=== PATIENT | male | born 1980 | race Caucasian/White ===

== ENCOUNTER 2016-11-17 15:56 | Inpatient (IN) ==
--- NOTE | 2016-11-17 16:17 | Emergency Department Note ---
Disposition Clinical Impression: Suicidal ideation Disposition: Still a Patient Condition: Good Referrals: NO,PCP [Primary Care Provider] - Forms: ED Satisfaction Letter Psych HPI - General Chief Complaint: ED Psychiatric Symptoms Stated Complaint: Anxiety / SI Time Seen by Provider: 11/17/16 15:58 Source: patient, EMS Mode of arrival: EMS Limitations: no limitations Nursing Notes Reviewed: Yes Vital Signs Reviewed: Yes - History of Present Illness HPI Narrative: 36-year-old male history of anxiety presents for evaluation of suicidal ideation. Patient states that he was driving felt weak and pulled over. He was at his doctor's urgent care office. States that he has been going through a difficult time. Reports that he feels like hurting himself. Does not want to hurt anybody else. Notes that he does not have a history of SI. Reports history of anxiety and noted some chest pain prior to coming into the emergency department. Patient does appear anxious. No shortness of breath or fevers. Patient does note that he tripped and fell and hit his head on the coffee table yesterday. Positive LOC. Denies delusions or hallucinations. Reports several life stressors with getting fired from his job as well as getting a divorce. Pt complaint: suicidal ideation, feels depressed Onset (ago): day(s) - Related Data Previous Rx's Medication Instructions Recorded Cyclobenzaprine [Flexeril] 10 mg PO HS #14 tablet 10/12/15 OxyCODONE/APAP 5/325 [Percocet 1 each PO Q8H PRN #20 tablet 10/12/15 5/325] Allergies Allergy/AdvReac Type Severity Reaction Status Date / Time No Known Allergies Allergy Verified 10/11/15 16:03 All systems ED: reviewed and negative except as stated. Constitutional: Reports: as per HPI. Denies: fever Eyes: Reports: as per HPI ENT ED: Reports: as per HPI Cardiovascular: Reports: as per HPI, chest pain Respiratory: Reports: as per HPI. Denies: cough, dyspnea Gastrointestinal: Reports: as per HPI. Denies: abdominal pain, nausea, vomiting Genitourinary: Reports: as per HPI Musculoskeletal: Reports: as per HPI, back pain Integumentary: Reports: as per HPI Neurological: Reports: as per HPI Psychiatric: Reports: as per HPI, anxiety Endocrine: Reports: as per HPI Past Medical History - Past Medical History Source: patient Medical history: Reports: other Psychiatric history: Reports: anxiety, depression - Social History Smoking Status: Current every day smoker Smokeless Tobacco Status: No Alcohol use: Reports: none Drug use: Reports: none Physical Exam - General Limitations: no limitations General appearance: alert, in no apparent distress - Head Head exam: atraumatic, normocephalic, normal inspection - Eye Eye exam: Present: normal appearance, EOMI, other (Right periorbital ecchymosis) - ENT ENT exam: normal exam, normal oropharynx, mucous membranes moist - Neck Neck exam: Present: normal inspection, full ROM - Chest Chest inspection: Present: normal inspection, symmetric chest wall rise - Respiratory Respiratory exam: Present: normal lung sounds bilaterally. Absent: respiratory distress - Cardiovascular Cardiovascular exam: Present: normal rhythm, tachycardia - Abdominal Exam Abdominal exam: Present: soft, Non-Tender - Extremities Exam Extremities exam: Present: normal inspection. Absent: pedal edema - Neurological Exam Neurological exam: Present: alert, oriented X3 - Psychiatric Psychiatric exam: Present: anxious - Skin Skin exam: Present: warm, dry, intact, normal color Course Course Narrative: Patient will get a medical clearance, CT of the head due to recent trauma to the head. No focal neurologic deficits. Patient's chest pain likely related to his stress. Patient does not have any risk factors for ACS. Heart scores low. He was given Ativan to help with anxiety. [place] slip was placed on the chart. - Reevaluation(s) Reevaluation #1: Patient's resting comfortably. No acute distress. Time: 17:16 Reevaluation #2: Patient has been medically cleared awaiting psychiatric evaluation. Time: 18:27 Vital Signs Temperature 98.4 F 11/17/16 15:58 Pulse Rate 96 11/17/16 15:58 Respiratory Rate 18 11/17/16 15:58 Blood Pressure 147/88 11/17/16 15:58 O2 Sat by Pulse Oximetry 94 L 11/17/16 15:58 Temperature 98.4 F 11/17/16 15:58 Pulse Rate 96 11/17/16 15:58 Respiratory Rate 18 11/17/16 15:58 Blood Pressure 147/88 11/17/16 15:58 O2 Sat by Pulse Oximetry 94 L 11/17/16 15:58 Oxygen Delivery Oxygen Delivery Room Air Psych - MDM Narrative Medical decision making narrative: 36-year-old male persist for evaluation after suicidal ideations. Patient has a history of anxiety. Notes he had several life stressors. Patient does have a plan with shooting himself. Patient had imaging of his head obtain because he had periorbital ecchymosis from a fall yesterday. Patient's CT of his head was unremarkable. Patient's chest x-ray as well as EKG is also unremarkable. Unlikely this is any ACS cardiac etiology. Patient has a history of anxiety. Resting comfortably. Patient was medically cleared as waiting 1A consults. Patient will be signed out by the oncoming provider. - Lab Data Result diagrams: 11/17/16 16:22 11/17/16 16:22 Lab Results 11/17/16 11/17/16 11/17/16 Range/Units 16:22 16:22 16:22 WBC 10.2 (4.3-11.1) K/mcL RBC 5.35 (4.19-5.50) M/mcL Hgb 16.6 (12.9-16.9) g/dL Hct 46.0 (37.5-50.1) % MCV 86.0 (83.0-100.0) fL MCH 31.0 (28.0-33.3) pg MCHC 36.1 H (31.6-35.5) g/dL RDW 12.5 (11.5-14.5) % Plt Count 309 (140-400) K/mcL MPV 9.6 (9.4-12.4) fL Immature Gran % 0.3 (0-4) % Seg Neutrophils % 60.5 % Lymphocytes % 30.0 % Monocytes % 8.3 % Eosinophils % 0.3 % Basophils % 0.6 % Neutrophils # 6.2 (1.6-8.9) K/mcL Lymphocytes # 3.1 (0.6-4.6) K/mcL Monocytes # 0.9 (0.0-1.3) K/mcL Eosinophils # 0.0 (0.0-0.6) K/mcL Basophils # 0.1 (0.0-0.2) K/mcL Sodium 142 (136-145) mEq/L Potassium 3.5 (3.5-4.5) mEq/L Chloride 106 (98-109) mEq/L Carbon Dioxide 23 (19-29) mEq/L BUN 8 (8-26) mg/dL Creatinine 0.89 (0.72-1.25) mg/dL Est GFR ( Amer) > 60 (> 60) Est GFR (Non-Af Amer) > 60 (> 60) BUN/Creatinine Ratio 9 (6-26) Glucose 96 (70-99) mg/dL Calculated Osmolality 292 (280-300) Calcium 9.7 (8.6-10.8) mg/dL Troponin I 0.00 (0-0.03) ng/mL TSH (0.350-4.840) mcIU/mL Urine Color (Yellow) Urine Clarity (Clear) Urine pH (5.0-8.0) pH Units Ur Specific [place] (1.010-1.025) Urine Protein (Neg-Trace) mg/dL Urine Glucose (UA) (Normal) mg/dL Urine Ketones (Negative) mg/dL Urine Blood (Negative) Urine Nitrite (Negative) Urine Bilirubin (Negative) Urine Urobilinogen (Normal) mg/dL Ur Leukocyte Esterase (Negative) Urine Microscopic RBC (0-3) per hpf Urine Microscopic WBC (0-3) per hpf Ur Squamous Epith Cells (None-Few) per lpf Urine Bacteria (None-Few) per hpf Hyaline Casts (None-Few) per lpf Salicylates < 5.0 L (15-30) mg/dL Urine Opiates Screen (Fafpvj=638) ng/mL Acetaminophen < 1.0 L (10-30) mcg/mL Ur Barbiturates Screen (Tlfepu=481) ng/mL Ur Phencyclidine Scrn (Cutoff=25) ng/mL Ur Amphetamines Screen (Xgefbc=0078) ng/mL U Benzodiazepines Scrn (Jwzrha=608) ng/mL Urine Cocaine Screen (Cutoff= 300) ng/mL U Marijuana (THC) Screen (Cutoff = 50) ng/mL Ethyl Alcohol < 10 (0-10) mg/dL 11/17/16 11/17/16 11/17/16 Range/Units 16:22 18:00 18:00 WBC (4.3-11.1) K/mcL RBC (4.19-5.50) M/mcL Hgb (12.9-16.9) g/dL Hct (37.5-50.1) % MCV (83.0-100.0) fL MCH (28.0-33.3) pg MCHC (31.6-35.5) g/dL RDW (11.5-14.5) % Plt Count (140-400) K/mcL MPV (9.4-12.4) fL Immature Gran % (0-4) % Seg Neutrophils % % Lymphocytes % % Monocytes % % Eosinophils % % Basophils % % Neutrophils # (1.6-8.9) K/mcL Lymphocytes # (0.6-4.6) K/mcL Monocytes # (0.0-1.3) K/mcL Eosinophils # (0.0-0.6) K/mcL Basophils # (0.0-0.2) K/mcL Sodium (136-145) mEq/L Potassium (3.5-4.5) mEq/L Chloride (98-109) mEq/L Carbon Dioxide (19-29) mEq/L BUN (8-26) mg/dL Creatinine (0.72-1.25) mg/dL Est GFR ( Amer) (> 60) Est GFR (Non-Af Amer) (> 60) BUN/Creatinine Ratio (6-26) Glucose (70-99) mg/dL Calculated Osmolality (280-300) Calcium (8.6-10.8) mg/dL Troponin I (0-0.03) ng/mL TSH 0.922 (0.350-4.840) mcIU/mL Urine Color Yellow (Yellow) Urine Clarity Clear (Clear) Urine pH 6.5 (5.0-8.0) pH Units Ur Specific [place] 1.010 (1.010-1.025) Urine Protein Negative (Neg-Trace) mg/dL Urine Glucose (UA) Normal (Normal) mg/dL Urine Ketones Trace H (Negative) mg/dL Urine Blood Negative (Negative) Urine Nitrite Negative (Negative) Urine Bilirubin Negative (Negative) Urine Urobilinogen Normal (Normal) mg/dL Ur Leukocyte Esterase Trace H (Negative) Urine Microscopic RBC 0-3 (0-3) per hpf Urine Microscopic WBC 3-5 H (0-3) per hpf Ur Squamous Epith Cells None Seen (None-Few) per lpf Urine Bacteria None Seen (None-Few) per hpf Hyaline Casts None Seen (None-Few) per lpf Salicylates (15-30) mg/dL Urine Opiates Screen Positive H (Zxmnsn=973) ng/mL Acetaminophen (10-30) mcg/mL Ur Barbiturates Screen Negative (Casqmw=076) ng/mL Ur Phencyclidine Scrn Negative (Cutoff=25) ng/mL Ur Amphetamines Screen Negative (Rnitep=7069) ng/mL U Benzodiazepines Scrn Negative (Fmpppn=224) ng/mL Urine Cocaine Screen Negative (Cutoff= 300) ng/mL U Marijuana (THC) Screen Positive H (Cutoff = 50) ng/mL Ethyl Alcohol (0-10) mg/dL - EKG Data EKG shows normal: sinus rhythm Rate: tachycardia Rhythm: NSR [place]/QRS: normal Interpretation: no acute changes Psychiatric Medical Clearance - Medical Clearance Checklist Does the patient have a NEW psychiatric condition?: No Any abnormalities indicating possible medical illness?: No Any history of medical issues?: No Medical History: No Social History Section defined Any abnormal vital signs prior to transfer?: No Current Vitals: Last Vital Signs Temp 98.4 F 11/17/16 15:58 Pulse 96 11/17/16 15:58 Resp 18 11/17/16 15:58 BP 147/88 11/17/16 15:58 Pulse Ox 94 L 11/17/16 15:58 Is the patient intoxicated or cognitively impaired?: No Psychiatric Lab Panel: Drug Levels and Toxicity 11/17/16 11/17/16 16:22 18:00 Urine Opiates Screen Positive H Acetaminophen < 1.0 L Ur Barbiturates Screen Negative Ur Phencyclidine Scrn Negative Ur Amphetamines Screen Negative U Benzodiazepines Scrn Negative Urine Cocaine Screen Negative U Marijuana (THC) Screen Positive H Ethyl Alcohol < 10 Any abnormalities on the physical exam?: No Any abnormal labs?: No Abnormal Labs: Abnormal lab results MCHC 36.1 g/dL (31.6-35.5) H 11/17/16 16:22 Urine Ketones Trace mg/dL (Negative) H 11/17/16 18:00 Ur Leukocyte Esterase Trace (Negative) H 11/17/16 18:00 Urine Microscopic WBC 3-5 per hpf (0-3) H 11/17/16 18:00 Salicylates < 5.0 mg/dL (15-30) L 11/17/16 16:22 Urine Opiates Screen Positive ng/mL (Ivvxxh=452) H 11/17/16 18:00 Acetaminophen < 1.0 mcg/mL (10-30) L 11/17/16 16:22 U Marijuana (THC) Screen Positive ng/mL (Cutoff = 50) H 11/17/16 18:00 Does the patient require durable medical equiptment?: No Is the patient ambulatory?: Yes Is the patient a fall risk?: No Has the patient been medically cleared?: Yes Any acute medical condition require Tx prior to transfer?: No Statement of Medical Clearance: I have evaluated the patient, reviewed diagnostic information, and certify that the patient's medical condition is sufficiently stable that transfer to the psychiatric unit does not pose a significant risk of deterioration. S.Leyla - Ayana Situation: Demographics Background: Presenting Complaint Assessment: Vital Signs, Course and respsone to treatment, Patient/Family Expectation, Pertinant Lab Results Recommendation: Barrier(s) to disposition, Recommendation based on pending studies, treatments, or consults S.B.Elzbieta Report Given to: Dr. Glo Piña Repor Time: 18:57 Attestation Statement - Attestation Attestation: I examined this patient and my medical decision-making was reviewed with the CABANA ATTENDANT/PA/Advanced Practice Nurse/Resident Physician. I agree with the documented findings, disposition and treatment plan as described except to the extent set forth below. Patient emergency department with suicidal thoughts. Patient has not felt well for a few days. Had a syncopal episode yesterday. Had a near syncopal episode today while driving and pulled over. Patient admits to increased depression secondary to life stressors. Has a plan to shoot himself. Exam shows an awake alert cooperative in no distress. Heart regular mildly tacky. Lungs clear. Plan. Neck workup for medical clearance. Psych eval.
[2016-11-17] MEDS ORDERED: *HR* LORazepam 0.5 MG TABLET PO ONE (16:22)
[2016-11-17 16:31] LABS: Basophils # 0.1 K/mcL (0.0-0.2); Basophils % 0.6 %; Eosinophils % 0.3 %; Hemoglobin 16.6 g/dL (12.9-16.9); Immature Granulocytes % 0.3 % (0-4); Lymphocytes # 3.1 K/mcL (0.6-4.6); Mean Corpuscular HGB Conc 36.1 g/dL (31.6-35.5); Mean Platelet Volume 9.6 fL (9.4-12.4); Monocytes # 0.9 K/mcL (0.0-1.3); Monocytes % 8.3 %; Neutrophils # 6.2 K/mcL (1.6-8.9); Platelet Count 309 K/mcL (140-400); Red Blood Count 5.35 M/mcL (4.19-5.50); Red Cell Distribution Width 12.5 % (11.5-14.5); Segmented Neutrophils % 60.5 %
[2016-11-17 16:52] LABS: BUN/Creatinine Ratio 9 (6-26); Blood Urea Nitrogen 8 mg/dL (8-26); Carbon Dioxide 23 mEq/L (19-29); Chloride 106 mEq/L (98-109); Potassium 3.5 mEq/L (3.5-4.5); Sodium 142 mEq/L (136-145)
[2016-11-17 16:53] LABS: Calcium 9.7 mg/dL (8.6-10.8); Ethanol < 10 mg/dL (0-10); Glucose 96 mg/dL (70-99); Osmolality,Calculated 292 (280-300); Salicylate < 5.0 mg/dL (15-30); eGFR For African Americans > 60 (> 60); eGFR For Non-African Americans > 60 (> 60)
[2016-11-17 17:40] LABS: Acetaminophen < 1.0 mcg/mL (10-30)
[2016-11-17] MEDS ORDERED: Ibuprofen 600 MG TABLET PO ONE (17:42)
[2016-11-17 18:15] LABS: Bilirubin,Urine Negative (Negative); Blood,Urine Negative (Negative); Clarity,Urine Clear (Clear); Color,Urine Yellow (Yellow); Glucose,Urine (UA) Normal (Normal); Ketones,Urine Trace mg/dL (Negative); Leukocyte Esterase,Urine Trace (Negative); Nitrite,Urine Negative (Negative); PH,Urine 6.5 pH Units (5.0-8.0); Protein,Urine Negative (Neg-Trace); Urobilinogen,Urine Normal (Normal)
[2016-11-17 18:18] LABS: Bacteria,Urine None Seen per hpf (None-Few); Hyaline Casts,Urine None Seen per lpf (None-Few); RBC,Urine 0-3 per hpf (0-3); Squamous Epithelial Cell,Urine None Seen per lpf (None-Few)
[2016-11-17 18:19] LABS: Amphetamine Screen,Urine Negative ng/mL (Cutoff=1000); Barbiturate Screen,Urine Negative ng/mL (Cutoff=200); Benzodiazepines Screen,Urine Negative ng/mL (Cutoff=200); Cannabinoid Screen,Urine Positive ng/mL (Cutoff = 50); Cocaine Screen,Urine Negative ng/mL (Cutoff= 300); Opiate Screen,Urine Positive ng/mL (Cutoff=300); Phencyclidine Screen,Urine Negative ng/mL (Cutoff=25)
--- NOTE | 2016-11-17 19:06 | Emergency Department Note ---
Disposition Clinical Impression: Suicidal ideation Disposition: Admitted As Inpatient Condition: Good Referrals: NO,PCP [Primary Care Provider] - Forms: ED Satisfaction Letter Time of Disposition: 22:37 General Adult HPI - General Chief complaint: ED Psychiatric Symptoms Stated complaint: Anxiety / SI Time Seen by Provider: 11/17/16 15:58 Source: patient, EMS Mode of arrival: EMS Limitations: no limitations - History of Present Illness Pain Scale: 5 - Related Data Previous Rx's Medication Instructions Recorded Cyclobenzaprine [Flexeril] 10 mg PO HS #14 tablet 10/12/15 OxyCODONE/APAP 5/325 [Percocet 1 each PO Q8H PRN #20 tablet 10/12/15 5/325] Allergies Allergy/AdvReac Type Severity Reaction Status Date / Time No Known Allergies Allergy Verified 10/11/15 16:03 Constitutional: Reports: as per HPI. Denies: fever Eyes: Reports: as per HPI ENT ED: Reports: as per HPI Cardiovascular: Reports: as per HPI, chest pain Respiratory: Reports: as per HPI. Denies: cough, dyspnea Gastrointestinal: Reports: as per HPI. Denies: abdominal pain, nausea, vomiting Genitourinary: Reports: as per HPI Musculoskeletal: Reports: as per HPI, back pain Integumentary: Reports: as per HPI Neurological: Reports: as per HPI Psychiatric: Reports: as per HPI, anxiety Endocrine: Reports: as per HPI Past Medical History - Past Medical History Medical history: Reports: other Psychiatric history: Reports: anxiety, depression - Social History Smoking Status: Current every day smoker Smokeless Tobacco Status: No Alcohol use: Reports: none Drug use: Reports: none Physical Exam - General Limitations: no limitations General appearance: alert, in no apparent distress Course Vital Signs Temperature 98.4 F 11/17/16 15:58 Pulse Rate 96 11/17/16 15:58 Respiratory Rate 18 11/17/16 15:58 Blood Pressure 147/88 11/17/16 15:58 O2 Sat by Pulse Oximetry 94 L 11/17/16 15:58 Temperature 98.4 F 11/17/16 15:58 Pulse Rate 96 11/17/16 15:58 Respiratory Rate 18 11/17/16 15:58 Blood Pressure 147/88 11/17/16 15:58 O2 Sat by Pulse Oximetry 94 L 11/17/16 15:58 Oxygen Delivery Oxygen Delivery Room Air Medical Decision Making - Lab Data Result diagrams: 11/17/16 16:22 11/17/16 16:22 Lab Results 11/17/16 11/17/16 11/17/16 Range/Units 16:22 16:22 16:22 WBC 10.2 (4.3-11.1) K/mcL RBC 5.35 (4.19-5.50) M/mcL Hgb 16.6 (12.9-16.9) g/dL Hct 46.0 (37.5-50.1) % MCV 86.0 (83.0-100.0) fL MCH 31.0 (28.0-33.3) pg MCHC 36.1 H (31.6-35.5) g/dL RDW 12.5 (11.5-14.5) % Plt Count 309 (140-400) K/mcL MPV 9.6 (9.4-12.4) fL Immature Gran % 0.3 (0-4) % Seg Neutrophils % 60.5 % Lymphocytes % 30.0 % Monocytes % 8.3 % Eosinophils % 0.3 % Basophils % 0.6 % Neutrophils # 6.2 (1.6-8.9) K/mcL Lymphocytes # 3.1 (0.6-4.6) K/mcL Monocytes # 0.9 (0.0-1.3) K/mcL Eosinophils # 0.0 (0.0-0.6) K/mcL Basophils # 0.1 (0.0-0.2) K/mcL Sodium 142 (136-145) mEq/L Potassium 3.5 (3.5-4.5) mEq/L Chloride 106 (98-109) mEq/L Carbon Dioxide 23 (19-29) mEq/L BUN 8 (8-26) mg/dL Creatinine 0.89 (0.72-1.25) mg/dL Est GFR ( Amer) > 60 (> 60) Est GFR (Non-Af Amer) > 60 (> 60) BUN/Creatinine Ratio 9 (6-26) Glucose 96 (70-99) mg/dL Calculated Osmolality 292 (280-300) Calcium 9.7 (8.6-10.8) mg/dL Troponin I 0.00 (0-0.03) ng/mL TSH (0.350-4.840) mcIU/mL Urine Color (Yellow) Urine Clarity (Clear) Urine pH (5.0-8.0) pH Units Ur Specific [place] (1.010-1.025) Urine Protein (Neg-Trace) mg/dL Urine Glucose (UA) (Normal) mg/dL Urine Ketones (Negative) mg/dL Urine Blood (Negative) Urine Nitrite (Negative) Urine Bilirubin (Negative) Urine Urobilinogen (Normal) mg/dL Ur Leukocyte Esterase (Negative) Urine Microscopic RBC (0-3) per hpf Urine Microscopic WBC (0-3) per hpf Ur Squamous Epith Cells (None-Few) per lpf Urine Bacteria (None-Few) per hpf Hyaline Casts (None-Few) per lpf Salicylates < 5.0 L (15-30) mg/dL Urine Opiates Screen (Utcfmc=950) ng/mL Acetaminophen < 1.0 L (10-30) mcg/mL Ur Barbiturates Screen (Fwcvna=631) ng/mL Ur Phencyclidine Scrn (Cutoff=25) ng/mL Ur Amphetamines Screen (Curvwr=4035) ng/mL U Benzodiazepines Scrn (Nnrwti=184) ng/mL Urine Cocaine Screen (Cutoff= 300) ng/mL U Marijuana (THC) Screen (Cutoff = 50) ng/mL Ethyl Alcohol < 10 (0-10) mg/dL 11/17/16 11/17/16 11/17/16 Range/Units 16:22 18:00 18:00 WBC (4.3-11.1) K/mcL RBC (4.19-5.50) M/mcL Hgb (12.9-16.9) g/dL Hct (37.5-50.1) % MCV (83.0-100.0) fL MCH (28.0-33.3) pg MCHC (31.6-35.5) g/dL RDW (11.5-14.5) % Plt Count (140-400) K/mcL MPV (9.4-12.4) fL Immature Gran % (0-4) % Seg Neutrophils % % Lymphocytes % % Monocytes % % Eosinophils % % Basophils % % Neutrophils # (1.6-8.9) K/mcL Lymphocytes # (0.6-4.6) K/mcL Monocytes # (0.0-1.3) K/mcL Eosinophils # (0.0-0.6) K/mcL Basophils # (0.0-0.2) K/mcL Sodium (136-145) mEq/L Potassium (3.5-4.5) mEq/L Chloride (98-109) mEq/L Carbon Dioxide (19-29) mEq/L BUN (8-26) mg/dL Creatinine (0.72-1.25) mg/dL Est GFR ( Amer) (> 60) Est GFR (Non-Af Amer) (> 60) BUN/Creatinine Ratio (6-26) Glucose (70-99) mg/dL Calculated Osmolality (280-300) Calcium (8.6-10.8) mg/dL Troponin I (0-0.03) ng/mL TSH 0.922 (0.350-4.840) mcIU/mL Urine Color Yellow (Yellow) Urine Clarity Clear (Clear) Urine pH 6.5 (5.0-8.0) pH Units Ur Specific [place] 1.010 (1.010-1.025) Urine Protein Negative (Neg-Trace) mg/dL Urine Glucose (UA) Normal (Normal) mg/dL Urine Ketones Trace H (Negative) mg/dL Urine Blood Negative (Negative) Urine Nitrite Negative (Negative) Urine Bilirubin Negative (Negative) Urine Urobilinogen Normal (Normal) mg/dL Ur Leukocyte Esterase Trace H (Negative) Urine Microscopic RBC 0-3 (0-3) per hpf Urine Microscopic WBC 3-5 H (0-3) per hpf Ur Squamous Epith Cells None Seen (None-Few) per lpf Urine Bacteria None Seen (None-Few) per hpf Hyaline Casts None Seen (None-Few) per lpf Salicylates (15-30) mg/dL Urine Opiates Screen Positive H (Ukiayf=009) ng/mL Acetaminophen (10-30) mcg/mL Ur Barbiturates Screen Negative (Fmpskm=330) ng/mL Ur Phencyclidine Scrn Negative (Cutoff=25) ng/mL Ur Amphetamines Screen Negative (Rssufg=7545) ng/mL U Benzodiazepines Scrn Negative (Zoawdf=425) ng/mL Urine Cocaine Screen Negative (Cutoff= 300) ng/mL U Marijuana (THC) Screen Positive H (Cutoff = 50) ng/mL Ethyl Alcohol (0-10) mg/dL Attestation Statement - Attestation Attestation: Care assumed from Dr. Jackson at 7 PM pending behavioral consultation. The patient was cleared medically by her. He is sleeping at the time of my exam and appears in no acute distress. EKG reviewed by me. 22:38: 1A accepts admission
[2016-11-17] MEDS ORDERED: MOM Conc 10 ML UD.LIQ PO PRN (23:43)
[2016-11-17] MEDS ORDERED: Mag Hydrox/Al Hydrox/Simeth 30 ML UDC PO PRN (23:43)
[2016-11-17] MEDS ORDERED: *HR* LORazepam 2 MG/ML VIAL IM PRN (23:43)
[2016-11-17] MEDS ORDERED: hydrOXYzine pamoate 25 MG CAPSULE PO PRN (23:43)
[2016-11-17] MEDS ORDERED: *HR* LORazepam 1 MG TABLET PO PRN (23:43)
[2016-11-17] MEDS ORDERED: Haloperidol Lactate 5 MG/ML VIAL IM PRN (23:43)
[2016-11-17] MEDS ORDERED: Ibuprofen 400 MG TABLET PO PRN (23:43)
[2016-11-18] MEDS ORDERED: tiZANidine 4 MG TABLET PO PRN (00:03)
[2016-11-18] MEDS: Gabapentin 300 MG CAPSULE PO SCH ×4 (00:15→20:17)
[2016-11-18] MEDS: traZODone 50 MG TABLET PO PRN ×2 (00:15→20:17)
[2016-11-18] MEDS: Nicotine 2 MG GUM BC PRN ×3 (00:17→17:17)
--- NOTE | 2016-11-18 10:03 | Electrocardiograph Report ---
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
--- NOTE | 2016-11-18 12:38 | Psychiatry History & Physical ---
Date of Encounter: 11/20/16 Time of Encounter: 12:34 History of Present Illness Patient Stated Chief Complaint: anxious, suicidal Medicare Admission Attestation: For traditional Medicare patients the provided hospital inpatient services are reasonable and necessary and in the case of services not specified as inpatient -only under 42 CFR 419.22 (n), that they are appropriately provided as inpatient services in accordance 42 CFR 412.3. For Critical [facility] the patient may reasonably be expected to be discharged or transferred to a hospital within 96 hours after admission to the Critical [facility]. Admitted From: Emergency Dept History of Present Illness: Mr. Quintero is a 36 year old male admitted for suicidal ideation who presented to emergency room with multiple complaints including chronic pain medication symptoms financial issues related to being on disability and taking care of his children and family issues in addition to regular user of marijuana and has not been taking his medication. He endorsed symptoms of depressed mood or sleep. Irritability since of hopelessness. His tox screen was positive for marijuana and opiates emergency room. His medication reviewed with and he was placed on Wellbutrin gabapentin and encouraged to participate in group activities on the unit since I am Past Med Surg Social Fam HX - Past Medical History Medical history: other - Past Psychiatric History Psychiatric history: Reports: no psych history. Denies: previous psychiatric hospitalization Family psychiatric history: Unknown Family History of Suicide: Unknown - Past Surgical History Surgical History: orthopedic, other - Social History Smoking Status: Current every day smoker Smokeless Tobacco Status: No Alcohol use: none Drug use: none - Family History Father Living Status: Still Living Hx Family Endocrine Disorder: Yes Medications & Allergies Cyclobenzaprine [Flexeril] 10 mg PO HS #14 tablet 10/12/15 [Rx] OxyCODONE/APAP 5/325 [Percocet 5/325] 1 each PO Q8H PRN #20 tablet 10/12/15 [Rx] Gabapentin [Neurontin] 300 mg PO TID 11/17/16 [History] Naproxen Sodium [Naproxen Sodium Cr] 500 mg PO DAILY PRN 11/17/16 [History] Tizanidine HCl [Zanaflex] 4 mg PO QID PRN 11/17/16 [History] BuPROPion XL (24 HR) [Wellbutrin Xl] 150 mg PO DAILY #30 tab.er.24h 11/19/16 [Rx ] TraZODone 50 mg PO HS PRN #30 tablet 11/19/16 [Rx] Allergies sertraline [From Zoloft] Adverse Reaction (Verified 11/18/16 00:05) Agitated Review of Systems Psychiatric: Reports: anxiety, suicidal ideation Mental Status Exam Patient orientation: Yes Person, Yes Time, Yes Place Level of alertness: Alert Patient appearance: Appropriate, Unkempt Behavior: calm, cooperative Psychomotor activity: Normal Eye contact: Maintains Eye Contact Mood description: Euthymic/stable, Depressed Affect description: congruent with mood Speech pattern: Normal rate, Normal rhythm, Normal tone Speech volume: Normal Thought process: Intact, Linear Thought content: Yes Suicidal ideation, No Homicidal ideation, No Overt delusions Perceptual disturbances: No Auditory hallucinations, No Visual hallucinations Attention span: Capable of Focused Attention Memory description: Grossly Intact Patient reliability: Reliable Historian Intelligence estimate: Average Judgment: Fair Insight: Partial Results - Vital Signs Vital signs: Temp Pulse Resp BP Pulse Ox 98.8 F 74 16 91/50 94 L 11/18/16 09:00 11/18/16 09:00 11/18/16 09:00 11/18/16 09:00 11/17/16 15:58 - Labs Labs: Laboratory Last Values WBC 10.2 K/mcL (4.3-11.1) 11/17/16 16:22 RBC 5.35 M/mcL (4.19-5.50) 11/17/16 16:22 Hgb 16.6 g/dL (12.9-16.9) 11/17/16 16:22 Hct 46.0 % (37.5-50.1) 11/17/16 16:22 MCV 86.0 fL (83.0-100.0) 11/17/16 16:22 MCH 31.0 pg (28.0-33.3) 11/17/16 16:22 MCHC 36.1 g/dL (31.6-35.5) H 11/17/16 16:22 RDW 12.5 % (11.5-14.5) 11/17/16 16:22 Plt Count 309 K/mcL (140-400) 11/17/16 16:22 MPV 9.6 fL (9.4-12.4) 11/17/16 16:22 Immature Gran % 0.3 % (0-4) 11/17/16 16:22 Seg Neutrophils % 60.5 % 11/17/16 16:22 Lymphocytes % 30.0 % 11/17/16 16:22 Monocytes % 8.3 % 11/17/16 16:22 Eosinophils % 0.3 % 11/17/16 16:22 Basophils % 0.6 % 11/17/16 16:22 Neutrophils # 6.2 K/mcL (1.6-8.9) 11/17/16 16:22 Lymphocytes # 3.1 K/mcL (0.6-4.6) 11/17/16 16:22 Monocytes # 0.9 K/mcL (0.0-1.3) 11/17/16 16:22 Eosinophils # 0.0 K/mcL (0.0-0.6) 11/17/16 16:22 Basophils # 0.1 K/mcL (0.0-0.2) 11/17/16 16:22 Sodium 142 mEq/L (136-145) 11/17/16 16:22 Potassium 3.5 mEq/L (3.5-4.5) 11/17/16 16:22 Chloride 106 mEq/L (98-109) 11/17/16 16:22 Carbon Dioxide 23 mEq/L (19-29) 11/17/16 16:22 BUN 8 mg/dL (8-26) 11/17/16 16:22 Creatinine 0.89 mg/dL (0.72-1.25) 11/17/16 16:22 Est GFR ( Amer) > 60 (> 60) 11/17/16 16:22 Est GFR (Non-Af Amer) > 60 (> 60) 11/17/16 16:22 BUN/Creatinine Ratio 9 (6-26) 11/17/16 16:22 Glucose 96 mg/dL (70-99) 11/17/16 16:22 Calculated Osmolality 292 (280-300) 11/17/16 16:22 Calcium 9.7 mg/dL (8.6-10.8) 11/17/16 16:22 Troponin I 0.00 ng/mL (0-0.03) 11/17/16 16:22 TSH 0.922 mcIU/mL (0.350-4.840) 11/17/16 16:22 Urine Color Yellow (Yellow) 11/17/16 18:00 Urine Clarity Clear (Clear) 11/17/16 18:00 Urine pH 6.5 pH Units (5.0-8.0) 11/17/16 18:00 Ur Specific [place] 1.010 (1.010-1.025) 11/17/16 18:00 Urine Protein Negative mg/dL (Neg-Trace) 11/17/16 18:00 Urine Glucose (UA) Normal mg/dL (Normal) 11/17/16 18:00 Urine Ketones Trace mg/dL (Negative) H 11/17/16 18:00 Urine Blood Negative (Negative) 11/17/16 18:00 Urine Nitrite Negative (Negative) 11/17/16 18:00 Urine Bilirubin Negative (Negative) 11/17/16 18:00 Urine Urobilinogen Normal mg/dL (Normal) 11/17/16 18:00 Ur Leukocyte Esterase Trace (Negative) H 11/17/16 18:00 Urine Microscopic RBC 0-3 per hpf (0-3) 11/17/16 18:00 Urine Microscopic WBC 3-5 per hpf (0-3) H 11/17/16 18:00 Ur Squamous Epith Cells None Seen per lpf (None-Few) 11/17/16 18:00 Urine Bacteria None Seen per hpf (None-Few) 11/17/16 18:00 Hyaline Casts None Seen per lpf (None-Few) 11/17/16 18:00 Salicylates < 5.0 mg/dL (15-30) L 11/17/16 16:22 Urine Opiates Screen Positive ng/mL (Mttatr=007) H 11/17/16 18:00 Acetaminophen < 1.0 mcg/mL (10-30) L 11/17/16 16:22 Ur Barbiturates Screen Negative ng/mL (Uxfjif=904) 11/17/16 18:00 Ur Phencyclidine Scrn Negative ng/mL (Cutoff=25) 11/17/16 18:00 Ur Amphetamines Screen Negative ng/mL (Zvtaxe=2327) 11/17/16 18:00 U Benzodiazepines Scrn Negative ng/mL (Hfbdlj=463) 11/17/16 18:00 Urine Cocaine Screen Negative ng/mL (Cutoff= 300) 11/17/16 18:00 U Marijuana (THC) Screen Positive ng/mL (Cutoff = 50) H 11/17/16 18:00 Ethyl Alcohol < 10 mg/dL (0-10) 11/17/16 16:22 Assessment and Plan (1) Suicidal ideation Status: Acute Plan: Admit inpatient for safety and stabilization, Close observation, Suicide Precautions per unit protocol, Encourage participation in unit milieu, Group Therapy, Monitor sleep, Monitor appetite Additional Plan: increase wellbutrin to 150 mg daily. Risks, benefits, side effects, alternatives discussed w/pt: Yes Patient agreeable to treatment: Yes Estimated Length of Stay (Days): 3
[2016-11-18] MEDS ORDERED: BuPROPion SR (12 HR) 150 MG TABLET PO SCH (12:53)
[2016-11-19] MEDS: Gabapentin 300 MG CAPSULE PO SCH (08:47)
[2016-11-19] MEDS ORDERED: BuPROPion XL (24 HR) 150 MG TABLET PO SCH (09:00)
[2016-11-19 09:19] VITALS: BP 105/66
[2016-11-19] MEDS: Nicotine 2 MG GUM BC PRN (09:59)
--- NOTE | 2016-11-19 11:55 | Psychiatry Progress Note ---
Date of Encounter: 11/19/16 Time of Encounter: 11:54 Subjective Interval history: Patient is seen for follow-up. Nursing staff reports she is showing improved mood and denied any problem with sleep, he denies suicidal ideation and anxious to be discharged and to be with his children. His discharge plans were discussed with him by social service liaison and report to his appointments. Review of Systems Psychiatric: Reports: depression, anxiety, difficulty concentrating Objective: Exam Patient orientation: Yes Person, Yes Time, Yes Place Level of alertness: Alert Patient appearance: Appropriate, Unkempt Behavior: calm, cooperative Psychomotor activity: Normal Eye contact: Maintains Eye Contact Mood description: Euthymic/stable, Depressed Affect description: congruent with mood Speech pattern: Normal rate, Normal rhythm, Normal tone Speech volume: Normal Thought process: Intact, Linear Thought content: No Suicidal ideation, No Homicidal ideation, No Overt delusions Perceptual disturbances: No Auditory hallucinations, No Visual hallucinations Judgment: Good Insight: Partial Results - Vital Signs Vital Signs: Temp Pulse Resp BP Pulse Ox 98.2 F 72 16 105/66 94 L 11/19/16 09:00 11/19/16 09:00 11/19/16 09:00 11/19/16 09:00 11/17/16 15:58 Assessment and Plan (1) Suicidal ideation Current visit: Yes Status: Acute Risks, benefits, side effects, alternatives discussed w/pt: Yes Patient agreeable to treatment: Yes Consult Discharge Plan - Plan Referrals: [facility] [Outside] (Office staff will contact you directly to schedule your intake appointment for counseling and case management services. You will see Dr. Myers, psychiatric prescriber, on 01/02/2017 at 3: 40pm.Please arrive 15 minutes early for this appointment to complete paperwork. You may contact the office regularly to check for cancellations that may allow you to be seen sooner by the psychiatric prescriber.)
--- NOTE | 2016-11-19 13:45 | Discharge Summary ---
Date of Encounter: 11/19/16 Time of Encounter: 13:39 Diagnosis - Discharge Diagnosis (1) Suicidal ideation Status: Acute Medications - Discharge Medications Prescriptions: BuPROPion XL (24 HR) [Wellbutrin Xl] 150 mg PO DAILY #30 tab.er.24h TraZODone 50 mg PO HS PRN #30 tablet PRN Reason: Insomnia Cyclobenzaprine [Flexeril] 10 mg PO HS #14 tablet 10/12/15 [Rx] OxyCODONE/APAP 5/325 [Percocet 5/325] 1 each PO Q8H PRN #20 tablet 10/12/15 [Rx] Gabapentin [Neurontin] 300 mg PO TID 11/17/16 [History] Naproxen Sodium [Naproxen Sodium Cr] 500 mg PO DAILY PRN 11/17/16 [History] Tizanidine HCl [Zanaflex] 4 mg PO QID PRN 11/17/16 [History] BuPROPion XL (24 HR) [Wellbutrin Xl] 150 mg PO DAILY #30 tab.er.24h 11/19/16 [Rx ] TraZODone 50 mg PO HS PRN #30 tablet 11/19/16 [Rx] Allergies sertraline [From Zoloft] Adverse Reaction (Verified 11/18/16 00:05) Agitated Provider Date of admission: 11/17/16 22:48 Primary care physician: PCP NO Discharging clinician: Sage Obrien Assessment and Plan - Patient/Caregiver Discharge Instructions Activity: resume usual activities as tolerated Diet: regular diet - Follow up Plan Follow up with: [facility] [Outside] (Office staff will contact you directly to schedule your intake appointment for counseling and case management services. You will see Dr. Myers, psychiatric prescriber, on 01/02/2017 at 3: 40pm.Please arrive 15 minutes early for this appointment to complete paperwork. You may contact the office regularly to check for cancellations that may allow you to be seen sooner by the psychiatric prescriber.) Overall status at discharge: Stable Disposition: Home, Self-Care Hospital Course Hospital course: Mr. Quintero is a 36 year old male admitted for suicidal ideation. Patient medication were reviewed and adjusted Wellbutrin was increased and trazodone was added to help sleep, he responded well to medication sleep improved. He participated in activities and group therapy. He denies suicidal ideation. Prior to discharge he was medically stable and nonsuicidal and tolerating medication without side effects and scheduled for follow-up appointments for therapy and medication. - Time Spent with Patient Total time spent providing and/or coordinating discharge services: Less than 30 minutes Quality - Multiple Antipsychotics Patient discharged on 2 or more antipsychotic medications: No Procedures - Procedures Procedures: Medication Management, Crisis Stabilization, Supportive Therapy, Group Therapy, Psychoeducational Therapy Mental Status Exam - Mental Status Exam Patient orientation: Yes Person, Yes Time, Yes Place Level of alertness: Alert Patient appearance: Appropriate, Unkempt Behavior: calm, cooperative Psychomotor activity: Normal Eye contact: Maintains Eye Contact Mood description: Euthymic/stable, Depressed Affect description: congruent with mood Speech pattern: Normal rate, Normal rhythm, Normal tone Speech Volume: Normal Thought process: Intact, Linear Thought Content: No Suicidal ideation, No Homicidal ideation, No Overt delusions Perceptual Disturbances: No Auditory hallucinations, No Visual hallucinations Judgment: Good Insight: Partial
== END 2016-11-19 14:20 | disposition home or self-care (01) | DRG 754 ==
LOC: EMEROO 15:56 → 1ANU 22:48
PROVIDERS: ADMIT Psychiatry & Neurology Psychiatry; ATTEND Psychiatry & Neurology Psychiatry